=== PATIENT | female | born 1990 | race Caucasian/White ===

== ENCOUNTER 2016-12-28 19:16 | Emergency (ER) | payer MEDICAID, OTHER ==
[~2016-12-28] VITALS: Ht 157.5 cm; Wt 64.0 kg
[~2016-12-28 19:16] MED LIST: GUAI-637 PO; PREN-14 PO
[2016-12-28 19:27] VITALS: Ht 157.5 cm; Wt 64.0 kg
[2016-12-28] MEDS ORDERED: morphine 4 MG/ML VIAL IV STA (21:20)
[2016-12-28] MEDS ORDERED: ONDANSETRON 4 MG INJ IV STA (21:20)
--- NOTE | 2016-12-28 21:31 | ERD ---
ER Documentation Chief Complaint Chief Complaint LOWER NON-RADIATING AP X 1 DAY, +N/V & FIELDS, DENIES DIARRHEA, FEVER IN THE AM HPI This is a 26 year old female who presents the emergency department today complaining of lower abdominal pain and vomiting that started today. States that she had a fever this morning. States she has not been able to eat. Denies any diarrhea or dysuria ROS All systems reviewed and are negative except as per history of present illness. Medications Home Meds Active Scripts Electrolyte,Oral (Pedialyte) 1,000 Ml Solution, 100 ML PO Q6 Y for vomiting, # 1000 ML Prov:ABY ARIAS PA-C 12/29/16 Naproxen* (Naprosyn*) 500 Mg Tablet, 500 MG PO BID Y for PAIN AND/OR INFLAMMATION, #30 TAB Prov:ABY ARIAS PA-C 12/29/16 Ondansetron Hcl* (Zofran*) 4 Mg Tablet, 4 MG PO Q6H for NAUSEA AND/OR VOMITING, #30 TAB Prov:ABY ARIAS PA-C 12/29/16 Guaifenesin* (Robitussin*) 100 Mg/5 Ml Syrup, 200 MG PO Q4H Y for COUGH, #240 ML Prov:JUNIOR BUSTAMANTE NP 05/21/15 Reported Medications Vit/Iron Fumarate/Fa ( PLUS TABLET) 1 Each Tablet, 1 EACH PO DAILY 11/07/12 Allergies Allergies: Coded Allergies: No Known Allergies (Verified Allergy, Unknown, 01/20/13) PMhx/Soc Medical and Surgical Hx: pt denies Medical Hx History of Surgery: Yes ( x 1) Hx Alcohol Use: No Hx Substance Use: No Hx Tobacco Use: No Smoking Status: Never smoker Physical Exam Vitals Vital Signs Date Time Temp Pulse Resp B/P Pulse Ox O2 Delivery O2 Flow Rate FiO2 12/28/16 19:27 99.6 103 18 122/73 98 Physical Exam Const: NAD Head: Atraumatic Eyes: Normal Conjunctiva ENT: Normal External Ears, Nose and Mouth. Neck: Full range of motion..~ No meningismus. Resp: Clear to auscultation bilaterally Cardio: Regular rate and rhythm, no murmurs Abd: Soft,right lower quadrant and periumbilical tenderness non distended. Normal bowel sounds. Skin: No petechiae or rashes Back: No midline or flank tenderness Ext: No cyanosis, or edema Neur: Awake and alert Psych: Normal Mood and Affect Result Diagram: 12/28/16212912/28/162129 Results 24 hrs Laboratory Tests Test 12/28/16 21:30 12/28/16 21:41 White Blood Count 9.610^3/ul Red Blood Count 4.6510^6/ul Hemoglobin 14.4g/dl Hematocrit 42.1% Mean Corpuscular Volume 90.5fl Mean Corpuscular Hemoglobin 31.0pg Mean Corpuscular Hemoglobin Concent 34.2g/dl Red Cell Distribution Width 12.6% Platelet Count 39272^3/UL Mean Platelet Volume 11.3fl Neutrophils % 82.6% Lymphocytes % 10.8% Monocytes % 5.5% Eosinophils % 0.6% Basophils % 0.2% Nucleated Red Blood Cells % 0.0/100WBC Neutrophils # 7.910^3/ul Lymphocytes # 1.010^3/ul Monocytes # 0.510^3/ul Eosinophils # 0.110^3/ul Basophils # 0.010^3/ul Nucleated Red Blood Cells # 0.010^3/ul Sodium Level 141mmol/L Potassium Level 3.7mmol/L Chloride Level 102mmol/L Carbon Dioxide Level 28mmol/L Anion Gap 15 Blood Urea Nitrogen 14mg/dl Creatinine 0.69mg/dl Glucose Level 100mg/dl Calcium Level 8.7mg/dl Total Bilirubin 0.9mg/dl Direct Bilirubin 0.00mg/dl Indirect Bilirubin 0.9mg/dl Aspartate Amino Transf (AST/SGOT) 21IU/L Alanine Aminotransferase (ALT/SGPT) 31IU/L Alkaline Phosphatase 69IU/L Total Protein 7.8g/dl Albumin 4.4g/dl Globulin 3.40g/dl Albumin/Globulin Ratio 1.29 Lipase 63U/L Bedside Urine pH (LAB) 6.0 Bedside Urine Protein (LAB) 1+ Bedside Urine Glucose (UA) Negative Bedside Urine Ketones (LAB) Negative Bedside Urine Blood Negative Bedside Urine Nitrite (LAB) Negative Bedside Urine Leukocyte Esterase (L Negative Current Medications Medications (Trade) Dose Ordered Sig/Michelle Route PRN Reason Start Time Stop Time Status Last Admin Dose Admin Morphine Sulfate (morphine) 4 mg ONCE STAT IV 12/28/16 21:20 12/28/16 21:22 DC 12/28/16 21:35 Ondansetron HCl (Zofran Inj) 4 mg ONCE STAT IV 12/28/16 21:20 12/28/16 21:22 DC 12/28/16 21:36 Procedures/MDM This is a 26-year-old female who presents the emergency department today complaining of abdominal pain, multiple bouts of vomiting and that started this morning. Given patient's complaints and physical exam I did obtain laboratory workup as well as imaging. Laboratory workup no elevated white blood cell count. She is not anemic. Platelets are within normal limits. Electrolytes are within normal limits. Glucose is within normal limits. Liver enzymes are within normal limits. Lipase is within normal limits. UA is negative for infection Urine test is negative CT abdomen and pelvis non contrast shows pancreas is mildly prominent however no evidence of significant adjacent inflammatory changes or peripancreatic fluid. Recommend correlation with amylase and lipase levels to exclude the possibility of mild pink otitis. There is no evidence of bowel obstruction. Appendix is within normal limits. Gallbladder appears to be within normal limits. There is no free fluid or free air. There is a 2.3 cm right adnexa cyst probably an ovarian cyst. Patient was given Zofran, morphine here in the emergency and patient reported feeling significantly better. Symptoms at this time is consistent with abdominal pain of uncertain etiology however low suspicion for acute surgical abdomen at this time. Low suspicion for ectopic , tubo-ovarian abscess, ovarian torsion. Patient's abdominal pain was in her lower abdomen and she does not have any upper abdominal pain I do not feel that a right upper quadrant ultrasound is necessary at this time. Patient indicated that she has not had alcohol in 3 months and only drinks occasionally. Patient did not appear to be in acute distress. I discussed her CT findings with her and explained her that she did not need to return in 8-12 hours for recheck for no improvement in symptoms, persistent symptoms or worsening of symptoms. Patient understood. At this time the patient is stable for discharge and outpatient management. Patient should follow up with their PCP in the next 1-2 days. They may return to the emergency department sooner for any persistent or worsening of symptoms. Patient understood and agreed with the plan. Discussed the CT and lab finding with Dr. Perry and he recommended repeat follow up in 8-12 hours Departure Diagnosis: Primary Impression: Abdominal pain Abdominal location: lower abdomen, unspecified Qualified Code: R10.30 - Lower abdominal pain Condition: Fair ABY ARIAS PA-C Dec 28, 2016 21:31
[2016-12-28 21:43] LABS: URINE BLOOD (Dip) POC Negative (NEGATIVE)
[2016-12-28 21:53] LABS: BASOPHILS % 0.2 % (0.0-2.0); EOSINOPHILS # 0.1 10^3/ul (0.0-0.5); EOSINOPHILS % 0.6 % (0.0-7.0); HEMATOCRIT 42.1 % (37.0-47.0); HEMOGLOBIN 14.4 g/dl (12.0-16.0); LYMPHOCYTES % 10.8 % (15.0-51.0); MEAN CORPUSCULAR HGB CONC 34.2 g/dl (32.0-37.0); MEAN CORPUSCULAR VOLUME 90.5 fl (82.0-101.0); MEAN PLATELET VOLUME 11.3 fl (7.4-10.4); MONOCYTE # 0.5 10^3/ul (0.3-0.9); MONOCYTES % 5.5 % (0.0-11.0); NEUTROPHIL # 7.9 10^3/ul (1.6-7.5); NEUTROPHILS % 82.6 % (39.0-77.0); PLATELET COUNT 212 10^3/UL (140-415); RED BLOOD COUNT 4.65 10^6/ul (4.20-5.40); RED CELL DISTRIBUTION WIDTH 12.6 % (11.5-14.5); WHITE BLOOD COUNT 9.6 10^3/ul (4.8-10.8)
[2016-12-28 22:23] LABS: ALBUMIN 4.4 g/dl (3.3-4.9); ALBUMIN/GLOBULIN RATIO 1.29; BILIRUBIN,INDIRECT 0.9 mg/dl (0-1.1); BILIRUBIN,TOTAL 0.9 mg/dl (0.2-1.3); CALCIUM 8.7 mg/dl (8.4-10.2); CREATININE 0.69 mg/dl (0.44-1.00); POTASSIUM 3.7 mmol/L (3.5-5.1); TOTAL PROTEIN 7.8 g/dl (6.1-8.1)
--- NOTE | 2016-12-28 22:41 | RADRPT ---
PROCEDURE: CT ABDOMEN AND PELVIS WITHOUT CONTRAST. CLINICAL INDICATION: Abdominal pain TECHNIQUE: CT scan of the abdomen and pelvis without contrast was performed on a multidetector hig h-resolution CT scanner. The patient was scanned without intravenous contrast. Coronal and sagittal reformatted images were obtained from the axial source images. Images were reviewed on a high-resol [employer] PACS workstation. The total exam CTDI equals 7 mGy and the total exam DLP equals 377.5 mGy-cm. One or more of the following dose reduction techniques were used: Automated exposure control. Adjustment of the mA and/or kV according to patient size. Use of iterative reconstruction technique. COMPARISON: None FINDINGS: CT abdomen: The lung bases are clear. The heart size is within limits. There is no significant pericardial effus ion. Hepatic morphology is within normal limits. No gross contour deforming masses. The gallbladder is wi thin normal limits. No evidence of intrahepatic or extrahepatic biliary dilatation. The spleen is unremarkable. There is possible prominence of the pancreas. However no significant adj acent fat stranding or peripancreatic fluid. Both adrenal glands are within normal limits. Both kidneys are in normal anatomic position. No evidence of obstruction or hydronephrosis. No gross renal/ureteric calculi. The visualized GI tract demonstrate normal caliber loops of small and large bowel. No evidence of evangelina wel obstruction. The appendix is within normal limits. The unenhanced aorta is unremarkable. No significant retroperitoneal lymphadenopathy. CT pelvis: Bladder is within normal limits. The uterus appears to within normal limits. There is a right cystic adnexa measuring 2.3 cm. The rectosigmoid colon is within normal limits. No significant free fluid. No significant pelvic lymphadenopathy. The visualized osseous structures, appears to be within normal limits. IMPRESSION: 1. The pancreas is mildly prominent however no evidence of significant adjacent inflammatory changes or peripancreatic fluid. Recommend correlation with amylase and lipase levels to exclude the possib ility of mild pancreatitis. 2. No evidence of bowel obstruction. The appendix is within normal limits. 3. Gallbladder appears to within normal limits. If there is concern for gallstones, ultrasound would be more sensitive. 4. No free fluid or free air. No gross focal fluid collections. 5. 2.3 cm right cystic adnexa, probably an ovarian cyst. RPTAT: AAPP Adarsh Hill, Physician Date Time Electronically viewed and signed by Adarsh Hill Physician on 12/28/2016 22:41 JL/
[2016-12-29] MEDS ORDERED: ONDA4TAB8 PO (00:08)
[2016-12-29] MEDS ORDERED: NAPR-260 PO (00:08)
[2016-12-29] MEDS ORDERED: ELEC100080 PO (00:09)
[2016-12-29 00:23] VITALS: BP 103/65; PULSE 93; RESP 18; TEMP 98
== END 2016-12-29 00:25 | disposition home or self-care (01) ==
LOC: FTE 19:16
DX: R10.31 Right lower quadrant pain (principal); R10.33 Periumbilical pain; R11.2 Nausea with vomiting, unspecified
CPT/HCPCS: 74176; 80053; 81003; 83690; 85025; J2270; J2405; 36415; 96374; 96375

== ENCOUNTER 2017-11-04 11:55 | Outpatient (CLI) | END 2017-11-04 13:35 | disposition home or self-care (01) ==